=== PATIENT | female | born 1985 | race Two or more races ===

== ENCOUNTER 2020-11-11 13:15 | Inpatient (IN) | payer OTHER ==
[~2020-11-11] VITALS: Ht 152.4 cm; Wt 75.3 kg
[2020-11-25] MEDS ORDERED: SYNTHROID88 MCG PO (01:58)
[2020-11-25] MEDS ORDERED: VITAMIN C500 M6 PO (01:59)
[2020-11-25] MEDS ORDERED: PRENATAL CAPLE1 EAC1 PO (01:59)
[2020-11-25] MEDS ORDERED: FOLIC ACID20 MG PO (01:59)
[2020-11-25] MEDS ORDERED: PROBIOTIC1 EACH PO (01:59)
[2020-12-07] MEDS ORDERED: ST. JOSEPH ASPI81 M2 (09:29)
== END 2020-12-09 10:48 | disposition home or self-care (01) | DRG 807 ==
LOC: OB/GYN 12-05 13:15 → LDR 12-07 05:22 → OB/GYN 12-07 05:22
PROVIDERS: ADMIT Obstetrics & Gynecology; ATTEND Obstetrics & Gynecology
PROC: 10E0XZZ Delivery of Products of Conception, External Approach (ICD-10-PCS; principal; 2020-12-07)
PROC: 0KQM0ZZ Repair Perineum Muscle, Open Approach (ICD-10-PCS; 2020-12-07)
PROC: 3E0P7VZ Introduction of Hormone into Female Reproductive, Via Natural or Artificial Opening (ICD-10-PCS; 2020-12-07)
PROC: 10907ZC Drainage of Amniotic Fluid, Therapeutic from Products of Conception, Via Natural or Artificial Opening (ICD-10-PCS; 2020-12-07)
PROC: 4A1HXFZ Monitoring of Products of Conception, Cardiac Rhythm, External Approach (ICD-10-PCS; 2020-12-07)
DX: O24.420 Gestational diabetes mellitus in childbirth, diet controlled (principal); Z37.0 Single live birth; O70.1 Second degree perineal laceration during delivery; O99.284 Endocrine, nutritional and metabolic diseases complicating childbirth; E03.9 Hypothyroidism, unspecified; O99.824 Streptococcus B carrier state complicating childbirth; Z3A.40 40 weeks gestation of pregnancy; Z20.822 Contact with and (suspected) exposure to COVID-19

== ENCOUNTER 2020-11-25 01:12 | Outpatient (CLI) | payer OTHER ==
[2020-11-25] MEDS ORDERED: SYNTHROID88 MCG PO (01:58)
[2020-11-25] MEDS ORDERED: VITAMIN C500 M6 PO (01:59)
[2020-11-25] MEDS ORDERED: PROBIOTIC1 EACH PO (01:59)
[2020-11-25] MEDS ORDERED: FOLIC ACID20 MG PO (01:59)
[2020-11-25] MEDS ORDERED: PRENATAL CAPLE1 EAC1 PO (01:59)
== END 2020-11-25 09:32 | disposition home or self-care (01) ==
LOC: OBS/DEL 01:12
PROVIDERS: ATTEND Obstetrics & Gynecology
DX: O47.1 False labor at or after 37 completed weeks of gestation (principal); O99.283 Endocrine, nutritional and metabolic diseases complicating pregnancy, third trimester; E03.8 Other specified hypothyroidism; O24.410 Gestational diabetes mellitus in pregnancy, diet controlled; Z3A.37 37 weeks gestation of pregnancy